=== PATIENT | male | born 1975 | race Caucasian/White ===

== ENCOUNTER → 2018-04-16 07:21 | Outpatient (CLI) | payer OTHER, SELFPAY ==
--- NOTE | 2018-04-16 07:21 | DT_ITS ---
This patient was seen during an EMR downtime April 16, 2018 - April 23, 2018. This patient may have a combination of paper and electronic documentation or all paper documentation. All documentation is viewable within the e-chart portion of [facility] for each patient visit.
[2018-04-20 21:34] LABS: Hemoglobin A1c 9.4 % (4.2-6.3)
[2018-04-20 21:35] LABS: Anion Gap 9 (5-15); BUN 15 mg/dL (7-18); BUN/Creat Ratio 17.9 RATIO (10-20); Calcium,Total 8.4 mg/dL (8.5-10.1); Chloride 106 mmol/L (98-107); Creatinine, Serum 0.84 mg/dL (0.70-1.30); EST Glomerular Filtration Rate 106 mL/min (>60); Est Glom Filt Rate - Afr Amer 128 mL/min (>60); Glucose 135 mg/dL (74-106); Potassium 3.7 mmol/L (3.5-5.1); Sodium Level 139 mmol/L (136-145)
[2018-04-20 21:36] LABS: Hematocrit 46.6 % (40-54); Hemoglobin 15.6 g/dl (13.0-16.5); Mean Corp Hgb Conc 33.5 g/gl (32-36); Mean Corpuscular Hgb 30.6 pg (27.0-32.0); Mean Corpuscular Volume 91.6 fL (80-94); Mean Platelet Vol. 12.1 fl (6.2-12.0); Platelet Count 235 K/mm3 (150-450); RBC Distribution Width SD 42.8 fl (35.1-43.9); Red Blood Count 5.09 M/mm3 (4.6-6.2); Scan Indicated on CBC? Y/N NO; White Blood Count 7.7 K/mm3 (4.4-11.0)
== END ==
PROVIDERS: Family Provider Family Medicine; PCP Family Medicine; Visit Provider Physician Assistant
DX: Z01.818 Encounter for other preprocedural examination (principal); E11.9 Type 2 diabetes mellitus without complications
CPT/HCPCS: 36415; 80048; 83036; 85027; 93005

== ENCOUNTER → 2018-04-19 10:40 | Outpatient (CLI) | payer OTHER, SELFPAY ==
--- NOTE | 2018-04-19 10:40 | DT_ITS ---
This patient was seen during an EMR downtime April 16, 2018 - April 23, 2018. This patient may have a combination of paper and electronic documentation or all paper documentation. All documentation is viewable within the e-chart portion of [facility] for each patient visit.
--- NOTE | 2018-04-20 | SOF_PTH ---
PATIENT: JORGE LUIS BRODERICK LOC: [facility] U#:[id number] AGE/SX: 49/M ROOM: RE04/19/[address]: Facundo Krishnan MD : [id number] BED: DIS: SPEC #: [id number] RECD: 04/20/18 16:06 STATUS: MELINDA LEWISLilia #: [id number] EARLINE: 04/20/18 00:[address]: Facundo Krishnan DEPT: SURGICAL PATHOLOGY RECD BY: Jorge Luis Doyle ENTERED: 04/23/18 07:45 SP TYPE: SOFT TISS OTHR DR: Dr. Kiran Perea MD [facility] Tissues: Soft tissues, NOS Procedures: Surgery Specimen Level III HEADER OPERATION: Right elbow epicondylar release PRE-OP DIAGNOSIS: Symptomatic lateral epicondylitis, right elbow TISSUE SUBMITTED: Aponeurosis, right elbow MICROSCOPIC DIAGNOSIS Aponeurosis, right elbow: Fragments of dense fibroconnective tissue, fibrocartilaginous tissue and fibroadipose tissue with reactive changes. RASHEED:[email or web address] 04/24/18 MICROSCOPIC DESCRIPTION Slides are reviewed. GROSS DESCRIPTION Received is one container labeled with the patient's name and not further designated. The specimen consists of multiple pieces of rosa-brown soft tissue that in aggregate measure 2 x 1.5 x 0.2 cm. The entire specimen is submitted in one cassette. / RASHEED:[email or web address] 04/23/18 TC:5 CPT: 75658
== END ==
PROVIDERS: Family Provider Family Medicine; PCP Family Medicine; Visit Provider Orthopaedic Surgery
DX: M77.11 Lateral epicondylitis, right elbow (principal)
CPT/HCPCS: 88304

== ENCOUNTER → 2021-07-27 | Outpatient (CLI) | payer MEDICAID, SELFPAY | END | disposition home or self-care (01) | LOC: LABSPEC 15:51 | PROVIDERS: PCP Family Medicine; Referring Provider Physician Assistant Surgical; Visit Provider Physician Assistant Surgical | DX: Z11.52 Encounter for screening for COVID-19 (principal) | CPT/HCPCS: 87635; U0005; U0003 ==

== ENCOUNTER → 2023-04-14 | Outpatient (CLI) | payer OTHER, MEDICAID, SELFPAY ==
[2023-04-14 10:17] LABS: Hemoglobin A1c 7.5 % (3.8-5.6)
[2023-04-14 10:21] LABS: Microalbumin:Creatinine Ratio 52.2 mg/g CRE (<30 mg/g CRE)
[2023-04-14 10:30] LABS: Vitamin D,25 Hydroxy 22.4 ng/mL
[2023-04-14 10:40] LABS: ALB/GLOB Ratio 1.1 RATIO (0.9-2.4); AST(SGOT) 40 U/L (15-37); Alanine Aminotransfer ALT/SGPT 76 U/L (16-61); Alkaline Phosphatase 94 U/L (45-117); Anion Gap 7 (5-15); BUN 13 mg/dL (7-18); BUN/Creat Ratio 14.2 RATIO (10-20); Calcium,Total 8.9 mg/dL (8.5-10.1); Chloride 108 mmol/L (98-107); Cholesterol 238 mg/dL (200); Creatinine, Serum 0.92 mg/dL (0.70-1.30); EST Glomerular Filtration Rate 93 mL/min (>60); Est Glom Filt Rate - Afr Amer 113 mL/min (>60); Globulin 3.6 g/dL (2.2-4.2); Glucose 179 mg/dL (74-106); High Density Lipoprotein 35 mg/dL; Potassium 4.1 mmol/L (3.5-5.1); Protein, Total 7.6 g/dL (6.4-8.2); Sodium Level 141 mmol/L (136-145); Thyroid Stim Hormone (TSH) 1.62 uIU/mL (0.358-3.74); Triglycerides 211 mg/dL; Very Low Density Lipoprotein 42 mg/dL (5-40)
== END | disposition home or self-care (01) ==
LOC: LAB 08:36
PROVIDERS: Referring Provider Nurse Practitioner Family; Visit Provider Nurse Practitioner Family
DX: E11.9 Type 2 diabetes mellitus without complications (principal); E78.5 Hyperlipidemia, unspecified; I10 Essential (primary) hypertension; E66.9 Obesity, unspecified
CPT/HCPCS: 36415; 80053; 80061; 82043; 82306; 82570; 83036; 84443

== ENCOUNTER → 2024-05-09 | Outpatient (CLI) | payer OTHER, SELFPAY ==
--- NOTE | 2024-05-09 10:42 | RAD_ITS ---
STUDY: X-RAY - PELVIS AND LEFT HIP REASON FOR EXAM: Male, 48 years old. Left lower quadrant pain. Woke up 6 months ago with left groin pain. TECHNIQUE: 3 views of the pelvis and left hip. COMPARISON: None. FINDINGS: There is a non-specific bowel gas pattern. Normal visualized soft tissue structures. Normal bilateral iliac wings, sacroiliac joints and visualized sacrum. Normal bilateral superior and inferior pubic rami. Normal pubic symphysis. Normal bilateral ischial tuberosities. Normal visualized femoral heads bilaterally. There is osteoarthritic spur formation of the acetabular rims bilaterally. There is no demonstrated acute fracture. RAD/HIP, UNI W/ Pelvis 2-3 Views IMPRESSION: Degenerative arthrosis of the hip joints bilaterally. No demonstrated acute fracture. Electronically Signed: Vikash Merida MD at 9:08 EDT ,
[2024-05-09 11:35] LABS: Vitamin D,25 Hydroxy 19.7 ng/mL
[2024-05-09 11:44] LABS: ALB/GLOB Ratio 1.1 RATIO (0.9-2.4); AST(SGOT) 23 U/L (15-37); Alanine Aminotransfer ALT/SGPT 52 U/L (16-61); Albumin, Serum 3.8 g/dL (3.2-5.0); Alkaline Phosphatase 84 U/L (45-117); Anion Gap 6 (5-15); BUN 15 mg/dL (7-18); BUN/Creat Ratio 13.8 RATIO (10-20); Calcium,Total 8.9 mg/dL (8.5-10.1); Chloride 106 mmol/L (98-107); Cholesterol 205 mg/dL (200); Creatinine, Serum 1.09 mg/dL (0.70-1.30); EST Glomerular Filtration Rate 76 mL/min (>60); Est Glom Filt Rate - Afr Amer 92 mL/min (>60); Globulin 3.4 g/dL (2.2-4.2); Glucose 139 mg/dL (74-106); High Density Lipoprotein 37 mg/dL; Potassium 4.1 mmol/L (3.5-5.1); Protein, Total 7.2 g/dL (6.4-8.2); Sodium Level 140 mmol/L (136-145); Thyroid Stim Hormone (TSH) 1.46 uIU/mL (0.358-3.74); Triglycerides 165 mg/dL; Very Low Density Lipoprotein 33 mg/dL (5-40)
[2024-05-09 11:57] LABS: Microalbumin,Random Urine 49.6 mg/L (NO RANGE EST.); Microalbumin:Creatinine Ratio 19.9 mg/g CRE (<30 mg/g CRE)
== END | disposition home or self-care (01) ==
PROVIDERS: PCP Nurse Practitioner Family; Visit Provider Nurse Practitioner Family
DX: R10.32 Left lower quadrant pain (principal); E11.9 Type 2 diabetes mellitus without complications; E66.9 Obesity, unspecified; R80.9 Proteinuria, unspecified
CPT/HCPCS: 36415; 73502; 80053; 80061; 82043; 82306; 82570; 84443